=== PATIENT | male | born 1960 | race Caucasian/White ===

== ENCOUNTER 2018-06-19 13:34 | Day surgery (SDC) | payer OTHER ==
[2018-06-19] MEDS ORDERED: LR 1,000 ML IV ONE (13:56)
[2018-06-19] MEDS ORDERED: ceFAZolin 2 GM/DEXTROSE 100 ML IV ONE (15:16)
[2018-06-19] MEDS ORDERED: MIDAZOLAM 2 MG/2 ML VIAL IVP ONE (16:43)
--- NOTE | 2018-06-19 16:43 | PDANEPAE ---
ANE History of Present Illness R bunionectomy ANE Past Medical History - Cardiovascular History Hx Hypertension: No Hx Arrhythmias: No Hx Chest Pain: No Hx Coronary Artery / Peripheral Vascular Disease: No Hx CHF / Valvular Disease: No Hx Palpitations: No - Pulmonary History Hx COPD: No Hx Asthma/Reactive Airway Disease: No Hx Recent Upper Respiratory Infection: No Hx Oxygen in Use at Home: No Hx Sleep Apnea: Yes Sleep Apnea Screening Result - Last Documented: Positive Pulmonary History Comment: radha positive- uses cpap - Neurologic History Hx Cerebrovascular Accident: No Hx Seizures: No Hx Dementia: No - Endocrine History Hx Diabetes: No - Renal History Hx Renal Disorders: No - Liver History Hx Hepatic Disorders: No - Neurological & Psychiatric Hx Hx Neurological and Psychiatric Disorders: No Neurological / Psychiatric History Comment: zoloft for agitation - Cancer History Hx Cancer: No - Congenital Disorder History Hx Congenital Disorders: No - GI History Hx Gastrointestinal Disorders: Yes Gastrointestinal History Comment: hx of egd's and colonosopies. hx of reflux- symptoms have resolved due to lifestyle changes - Other Health History Other Health History: wears glasses - Chronic Pain History Chronic Pain: Yes (right foot, lower back) - Surgical History Prior Surgeries: colonoscopies and egd's. appy 2007 ANE Review of Systems Review of systems is: negative Review of Systems: - Exercise capacity METS (RN): 4 METS ANE Patient History - Allergies Allergies/Adverse Reactions: No Known Allergies Allergy (Verified 06/10/18 11:05) - Home Medications Home medications: home medication list seen and reviewed Home Medications: Herbals/Supplements -Info Only 06/10/18 [Last Taken 06/18/18] Zoloft 100mg (*) 06/10/18 [Last Taken 06/18/18] - NPO status NPO Since - Liquids (Date): 06/19/18 NPO Since - Liquids (Time): 11:59 NPO Since - Solids (Date): 06/18/18 NPO Since - Solids (Time): 20:00 - Anes Hx Anes Hx: no prior problems - Smoking Hx Smoking Status: Former smoker - Family Anes Hx Family Anes Hx: none Family Hx Anesthesia Complications: none ANE Labs/Vital Signs - Vital Signs Vital Signs: reviewed preoperatively; see RN documention for details Blood Pressure: 168/76 Heart Rate: 51 Respiratory Rate: 10 O2 Sat (%): 97 Height: 177.8 cm Weight: 93.894 kg ANE Anesthesia Plan Total IV Anesthesia: Yes
[2018-06-19] MEDS ORDERED: PROPOFOL/EMULSION 500 MG/50 ML BOTTLE IV ONE ×2 (16:55→18:36)
[2018-06-19] MEDS ORDERED: LIDOCAINE 2% 100 MG/5 ML SYR ONE (16:56)
--- NOTE | 2018-06-19 17:29 | PDHPUP ---
History & Physical Update H&P update statement: This history and physical update is based on an assessment of the patient which was completed after admission or registration (within 24 hours), but prior to the surgery/procedure. H&P update: H&P reviewed & patient examined (no changes in health), no change in patient's condition since H&P completed
[2018-06-19] MEDS ORDERED: LIDOCAINE 1% 300 MG/30 ML SDV ONE (17:36)
[2018-06-19] MEDS ORDERED: ROPIVACAINE HCL 150 MG/30 ML INJ ONE (17:37)
[2018-06-19] MEDS ORDERED: BACITRACIN 50,000 UNITS/10 ML SYR IRR ONE (17:37)
[2018-06-19] MEDS ORDERED: DEXAMETHASONE 4 MG/ML VIAL ONE (17:37)
[2018-06-19] MEDS ORDERED: BUPIVACAINE 0.5% 30 ML SDV ONE (17:37)
[2018-06-19] MEDS ORDERED: HYDROCODONE/APAP 5/325 TAB PO PRN (18:33)
[2018-06-19] MEDS ORDERED: ONDANSETRON 4 MG/2 ML VIAL IVP PRN (18:33)
[2018-06-19] MEDS ORDERED: DEXAMETHASONE 4 MG/ML VIAL IVP PRN (18:33)
[2018-06-19] MEDS ORDERED: PROMETHAZINE HCL 25 MG/ML INJ IVP PRN (18:33)
[2018-06-19] MEDS ORDERED: ACETAMINOPHEN 500 MG TAB PO PRN (18:33)
[2018-06-19] MEDS ORDERED: fentaNYL 100 MCG/2 ML INJ IVP PRN (18:33)
[2018-06-19] MEDS ORDERED: oxyCODONE IR 5 MG TAB PO PRN (18:33)
[2018-06-19] MEDS ORDERED: NALOXONE HCL 0.4 MG/ML INJ IVP PRN (18:33)
--- NOTE | 2018-06-19 18:33 | POSTANESTH ---
Post Anesthetic Evaluation Cardiovascular Status: Normal, Stable, Similar to Pre-Op Cond Respiratory Status: Similar to Pre-op Cond. Level of Consciousness/Mental Status: Can Participate in Eval, Moderately Sleepy Pain Control: Adequate, Prn Tx Ordered Nausea/Vomiting Control: Adequate, Prn Tx Ordered Complications Possibly Related to Anesthesia: None Noted
[2018-06-19] MEDS ORDERED: PROPOFOL 200 MG/20 ML VIAL ONE (19:32)
[2018-06-19] MEDS ORDERED: KETOROLAC 30 MG/1 ML SDV ONE (19:51)
--- NOTE | 2018-06-19 19:58 | POSTOPPROG ---
Post Op Note Date of Operation: 06/19/18 Surgeon: Daphne Newton Manufacturing Support Engineer: Phoebe Newton Anesthesiologist: Brice Martin Pre-op Diagnosis: hallux valgus with MPV (bunion) , exostosis midfoot, all right foot Post-op Diagnosis: same Indication: pain Procedure: Bunionectomy with osteotomy, exostectomy midfoot, all right foot Inf/Abcess present in the surg proc area at time of surgery?: No EBL: Minimal Complications: none
[2018-06-19 21:15] VITALS: BP 151/72
--- NOTE | 2018-06-20 06:48 | GOP ---
DATE OF OPERATION: 06/19/2018 SURGEON: Daphne Newton DPM MARKET EDITOR: Phoebe Newton DPM. ANESTHESIA: IV sedation with local. ANESTHESIOLOGIST: Brice Martin MD. 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 PROCEDURE PERFORMED: Bunionectomy with distal osteotomy, 1st metatarsal; dorsal exostectomy midfoot, all right foot. FINDINGS: INDICATIONS: The patient presented to the hospital approximately 2 hours prior to foot surgery after having been n.p.o. past midnight. Patient's preoperative history and physical, and all lab studies were reviewed, and there were no contraindications to the proposed procedure. The patient was given cefazolin 2 g IV 0.5 hour prior to foot surgery. DESCRIPTION OF PROCEDURE: The patient was taken to the OR room and placed on the OR table in a supin e position where the appropriate anesthetic agents were administered. This was supplemented with a l ocal block to the right foot utilizing a total of 17 cc of 0.5% Naropin with 8 cc of 1% lidocaine martita in given to the posterior tibial nerve as it courses through the tarsal tunnel, anterior ankle, and p roximal to the surgical site at the level of the mid foot. The right lower extremity was then preppe d and draped in the usual aseptic fashion, covered with sterile stockinette. A sterile pneumatic ank le tourniquet was applied and padded well underneath. Utilizing elevation overlying Esmarch bandage, the right foot was exsanguinated and the tourniquet was inflated to a pressure of 225 mmHg. The trev t was lowered to the orthopedic table. Attention was then directed to the dorsal medial aspect of the 1st metatarsophalangeal joint, right f oot, where an approximate 5 cm curvilinear incision was made initially just distal to the 1st metatar sophalangeal joint and extended proximally. The incision was made medial to the extensor hallucis lo ngus tendon. The incision was deepened through the subcutaneous tissues to the level of the capsular and periosteal tissues taking care to preserve the neurovascular structures. Any bleeders were clam ped and cauterized or ligated as needed. The subcutaneous tissues were freed from the dorsal medial capsular tissues. A capsular incision was made in a similar plane as the skin incision, and the caps ular and periosteal tissues were reflected off the dorsal medial and medial aspects of the head of th e 1st metatarsal and distal shaft region. Attention was then directed to the 1st intermetatarsal space, where utilizing sharp and blunt dissect ion, the adductor tendon was identified and released from its attachment lateral aspect base of the h allux where there was contracture. Attention was then redirected to the medial aspect of the 1st met atarsal where the hypertrophic bone was resected utilizing the sagittal saw and placed on the back ta ble. Two osteotomies were then created to the distal 1st metatarsal in a medial to lateral direction . A guidewire was 1st advanced through the central aspect head of the 1st metatarsal in a medial to lateral direction. The 1st osteotomy was initiated with the K-wire and extended plantarly and proxim ally so as to exit proximal to the sesamoid apparatus. The 2nd osteotomy was initiated also with the K-wire, but extended dorsally and proximally. The 2nd osteotomy was approximately 2-3 times the arlen gth of the 1st osteotomy. The K-wire was removed and the 1st metatarsal head was shifted laterally 6 mm and placed against the distal shaft in a congruent position. The osteotomy site was temporarily fixated with a K-wire, advanced in a dorsal distal to plantar proximal direction. The guidewires to the 2 headless Arthrex screws were then placed in a dorsal distal to plantar proximal direction acros s the osteotomy site. Utilizing the standard technique for the Arthrex systems, the 2 headless 2.5 A rthrex screws measuring 16 mm in length were placed over the guidewires. The guidewires were removed and the temporary K-wire. The osteotomy site was stable and well aligned. A C-arm was utilized to evaluate alignment and position, which was optimal. The medial shelf of bone was then resected utili zing the sagittal saw and placed on the back table. Any prominent remaining bony borders were remode led to smooth surface. The surgical site was copiously irrigated with sterile saline/bacitracin solu tion. The capsular tissues were reapproximated with 2-0 and 3-0 Vicryl. Attention was then directed to the dorsal aspect of the right mid foot where a curvilinear incision w as made centered over the bony prominence to the base of the 1st metatarsal and 1st cuneiform joint. The incision was approximately 3 cm in length. The incision was deepened through the subcutaneous t issues to the level of the deep fascia, taking care to preserve the neurovascular structures. The de ep fascia was incised and then the periosteal tissues reflecting it off the prominent exostosis at th e level of the 1st metatarsal medial cuneiform joint involving both sides. The periosteal and capsul ar tissues were reflected off the bony prominence and utilizing the sagittal saw, and then an osteoto me and mallet, the hypertrophic bone was resected and placed on the back table. Any prominent bony b orders were remodeled to a smooth surface utilizing the powered bur. Surgical site was copiously irr igated with a sterile saline/bacitracin solution. Bone wax was then applied to the area of the resec rachel bone. The capsular and periosteal tissues were reapproximated utilizing 3-0 Vicryl. The deep fa scia was reapproximated utilizing 3-0 Vicryl. The tourniquet was released. There was immediate capillary refill to all digits and there was hemost asis. The subcutaneous tissues reapproximated utilizing 4-0 Monocryl. The skin was reapproximated u tilizing 4-0 Prolene with interrupted horizontal mattress sutures. An additional 9 cc of 0.5% Marcai ne plain was injected proximal to the surgical sites. A mildly compressive dry sterile gauze dressin g applied with 4 x 4 gauze, Ojhn, Kerlix, and Patrick bandages extending from the foot to the lower knee . The patient tolerated the procedures and anesthesia well, was transferred to the recovery room with v ital signs stable and vascular status intact to the right lower extremity. In the recovery room, the patient received postoperative oral and written home care instructions. The patient instructed to w ear the cast boot at all times when weightbearing, to utilize crutches for ambulation assist for the first 2 days to help off weight the right forefoot. The patient had been given prescriptions for Phe nergan and Percocet to take postoperatively as prescribed for pain. The patient was dispensed a Cryo /Cuff and instructed on its usage. He is scheduled for his 1st postoperative visit in 2 days, suppos e to call the office earlier if any questions or problems should arise. Postoperative radiographs we re ordered. /[id number]/MODL
== END 2018-06-19 21:24 | disposition home or self-care (01) ==
LOC: FSGY 13:34
PROVIDERS: ATTEND Podiatrist
PROC: 0QBN0ZZ Excision of Right Metatarsal, Open Approach (ICD-10-PCS; principal; 2018-06-19 15:00)
PROC: 0QSN0ZZ Reposition Right Metatarsal, Open Approach (ICD-10-PCS; principal; 2018-06-19 15:00)
PROC: 0Q8N0ZZ Division of Right Metatarsal, Open Approach (ICD-10-PCS; principal; 2018-06-19 15:00)
DX: M20.11 Hallux valgus (acquired), right foot (principal)
CPT/HCPCS: 28296; 73630; C1769; C1713; J0690; J1100; J1885; J2001; J2250; J2704; J2795

== ENCOUNTER → 2018-08-01 | Outpatient (CLI) | payer OTHER | LOC: CIMAGING 16:36 | PROVIDERS: ATTEND Podiatrist | DX: R60.0 Localized edema (principal) | CPT/HCPCS: 93971-PO ==